=== PATIENT | male | born 1975 | race Caucasian/White ===

== ENCOUNTER 2020-02-27 09:25 | Emergency (ER) | payer OTHER ==
[~2020-02-27] VITALS: Ht 172.7 cm; Wt 89.4 kg
[2020-02-27 09:37] VITALS: Ht 172.7 cm; Wt 89.4 kg
[2020-02-27 10:30] VITALS: BP 113/69
== END 2020-02-27 10:30 | disposition home or self-care (01) ==
LOC: ED 09:25
DX: S63.502A Unspecified sprain of left wrist, initial encounter (principal); V19.9XXA Pedal cyclist (driver) (passenger) injured in unspecified traffic accident, initial encounter; Y93.89 Activity, other specified; Y92.89 Other specified places as the place of occurrence of the external cause; Y99.8 Other external cause status
CPT/HCPCS: Q0092